=== PATIENT | female | born 1995 | race African-American/Black ===

== ENCOUNTER 2016-07-23 12:14 | Emergency (ER) | payer OTHER ==
[2016-07-23 12:25] VITALS: TEMP 98.2; BMI 19.3
[2016-07-23] MEDS ORDERED: morphine CARPU-JECT 2 MG/1 ML DISP.SYRIN IVPUSH ONE (12:43)
[2016-07-23] MEDS ORDERED: morphine CARPU-JECT 4 MG/1 ML DISP.SYRIN ONE (12:52)
[2016-07-23 13:18] LABS: BASOPHIL 0.4 % (0-2.0); EOSINOPHIL 7.1 % (0-4.5); MCH 31.5 pg (25.7-33.7); MCHC 33.7 g/dl (32.0-36.0); MEAN CELL VOLUME 93.4 fl (80-96); MEAN PLT VOLUME 7.7 fl (7.5-11.1); NEUTROPHILS 64.5 % (42.8-82.8); PLATELET COUNT 230 K/MM3 (134-434); RDW 13.9 % (11.6-15.6)
--- NOTE | 2016-07-23 13:18 | PDOC ---
History of Present Illness - General Chief Complaint: Pain Stated Complaint: ABD PAIN Time Seen by Provider: 07/23/16 12:32 History Source: Patient Exam Limitations: No Limitations - History of Present Illness Travel History: No Initial Comments: 07/23/16 13:13 21-year-old female with no past medical history presents with right upper quadrant pain that she describes as sharp and constant gradually worsening since this morning. Patient denies history of gallstones, urinary tract infections, kidney stones, recent illness, nausea, fever, chest pain or shortness of breath. Timing/Duration: reports: constant, getting worse Quality: reports: moderate, sharpness Abdominal Pain Onset Location: reports: RUQ Pain Radiation: reports: flank Activities at Onset: reports: none Aggravating Factors: improves with: None Alleviating Factors: improves with: None Past History - Past Medical History Allergies/Adverse Reactions: Allergies Allergy/AdvReac Type Severity Reaction Status Date / Time peanut Allergy Swelling Verified 07/23/16 12:25 alieve Allergy Difficulty Uncoded 07/23/16 12:25 Breathing Home Medications: Ambulatory Orders NK [No Known Home Medication] 07/23/16 Thyroid Disease: No - Surgical History Abdominal Surgery: Yes (hernia) - Reproductive History LMP Normal: No Is Patient Now?: No (#): 0 Para: 0 - Psycho/Social/Smoking Cessation Hx Anxiety: No Suicidal Ideation: No Smoking History: Former smoker Have you smoked in the past 12 months: No Information on smoking cessation initiated: No Hx Alcohol Use: Yes (daily) Drug/Substance Use Hx: Yes (smokes marijuana daily) Substance Use Type: Alcohol, Marijuana Patient Lives Alone: No Lives with/in: parents Review of Systems - Review of Systems Able to Perform ROS?: Yes Constitutional: No: Symptoms Reported HEENTM: No: Symptoms Reported Respiratory: No: Symptoms reported Cardiac (ROS): No: Symptoms Reported ABD/GI: Yes: Abdominal cramping : Yes: Flank Pain Musculoskeletal: No: Symptoms Reported Integumentary: No: Symptoms Reported Neurological: No: Symptoms reported Endocrine: No: Symptoms Reported Hematologic/Lymphatic: No: Symptoms Reported *Physical Exam - Vital Signs Last Vital Signs Temp Pulse Resp BP Pulse Ox 98.2 F 67 18 129/90 100 07/23/16 12:15 07/23/16 12:15 07/23/16 12:15 07/23/16 12:15 07/23/16 12:15 - Physical Exam General Appearance: Yes: Nourished, Appropriately Dressed. No: Apparent Distress HEENT: positive: EOMI, CHRISTINA. negative: Pale Conjunctivae Neck: positive: Supple Respiratory/Chest: positive: Lungs Clear, Normal Breath Sounds. negative: Respiratory Distress, Accessory Muscle Use Cardiovascular: positive: Regular Rhythm, Regular Rate. negative: Murmur Gastrointestinal/Abdominal: positive: Soft, Tenderness (right upper quadrant. Negative McBurney's. ) Musculoskeletal: positive: CVA Tenderness (R) Extremity: positive: Normal Capillary Refill. negative: Pedal Edema Integumentary: positive: Normal Color, Warm, Moist ED Treatment Course - LABORATORY CBC & Chemistry Diagram: 07/23/16 13:10 07/23/16 13:10 - RADIOLOGY Radiology Studies Ordered: Category Date Time Status ABDOMEN US -LIMITED [US] Stat Ultrasound 07/23/16 12:43 Ordered - Medications Given in the ED: ED Medications Discontinued Medications Generic Name Dose Route Start Last Admin Trade Name Gee PRN Reason Stop Dose Admin Morphine Sulfate 4 mg 07/23/16 12:43 07/23/16 13:00 Morphine Injection - IVPUSH 07/23/16 12:44 4 mg ONCE ONE Administration Medical Decision Making - Medical Decision Making 07/23/16 13:00 Patient with right upper quadrant and right flank pain on exam. Patient also with CVA tenderness on exam. Patient ordered for labs, lipase, urine, and gallbladder ultrasound. Patient also ordered morphine for pain 07/23/16 15:05 Laboratory Tests 07/23/16 07/23/16 07/23/16 12:28 13:10 13:10 WBC 6.0 Hgb 12.8 Hct 37.9 Plt Count 230 Neutrophils % 64.5 Sodium 140 Potassium 4.1 Chloride 104 Carbon Dioxide 26 Anion Gap 10 BUN 6 L Creatinine 0.7 Random Glucose 95 Calcium 9.2 Total Bilirubin 0.6 AST 11 L ALT 15 Alkaline Phosphatase 60 Total Protein 7.3 Albumin 4.1 Lipase 77 Urine Ketones Negative Urine Nitrite Negative Urine HCG, Qual Negative Patient requesting more pain medication. Patient ordered for Toradol. Patient pending ultrasound. 07/23/16 15:19 Patient has no signs of gallbladder abnormality. Lives with her is measuring liver measuring normal size. Pancreas is not visualized secondary to bowel gas. Patient will be discharged home to increase her activity drink plenty of fluids and add fiber to diet. *DC/Admit/Observation/Transfer Diagnosis at time of Disposition: Abdominal pain Qualifiers: Abdominal location: right upper quadrant Qualified Code(s): R10.11 - Right upper quadrant pain - Discharge Dispostion Disposition: HOME Condition at time of disposition: Improved - Patient Instructions Printed Discharge Instructions: DI for Abdominal Pain-Adult Additional Instructions: Please increase her fiber drink more fluids and increase activity as this may be related to gas.
[2016-07-23 13:21] LABS: URINE APPEARANCE CLEAR; URINE BILIRUBIN NEGATIVE (NEGATIVE); URINE BLOOD NEGATIVE (NEGATIVE); URINE COLOR STRAW; URINE GLUCOSE (UA) NEGATIVE (NEGATIVE); URINE KETONE NEGATIVE (NEGATIVE); URINE LEUK ESTERASE NEGATIVE (NEGATIVE); URINE NITRITE NEGATIVE (NEGATIVE); URINE PROTEIN NEGATIVE (NEGATIVE); URINE UROBILINOGEN NEGATIVE E.U./dl (0.2-1.0)
[2016-07-23 13:39] LABS: ALBUMIN 4.1 g/dl (3.4-5.0); ANION GAP 10 (8-16); BILIRUBIN,TOTAL 0.6 mg/dL (0.2-1.0); CALCIUM 9.2 mg/dL (8.5-10.1); CO2 26 mmol/L (21-32); COCKROFT - GAULT 104.7115; CREATININE 0.7 mg/dL (0.55-1.02); GLUCOSE,RANDOM 95 mg/dL (74-106); SGOT/AST 11 U/L (15-37); SGPT/ALT 15 U/L (12-78); TOT PROT 7.3 g/dl (6.4-8.2)
[2016-07-23 13:43] LABS: ALK PHOS 60 U/L (45-117)
--- NOTE | 2016-07-23 14:09 | PDOC ---
*Physical Exam - Vital Signs Last Vital Signs Temp Pulse Resp BP Pulse Ox 98.2 F 67 18 129/90 100 07/23/16 12:15 07/23/16 12:15 07/23/16 12:15 07/23/16 12:15 07/23/16 12:15 - Physical Exam Comments: 07/23/16 14:09 The patient was examined by [AMARA Reis] under my direct supervision. I personally evaluated the patient. I concur with the above findings and the plan of care. ED Treatment Course - LABORATORY CBC & Chemistry Diagram: 07/23/16 13:10 07/23/16 13:10 - ADDITIONAL ORDERS Additional order review: Laboratory Results 07/23/16 07/23/16 13:10 12:28 Sodium 140 Potassium 4.1 Chloride 104 Carbon Dioxide 26 Anion Gap 10 BUN 6 L Creatinine 0.7 Creat Clearance w eGFR > 60 Random Glucose 95 Calcium 9.2 Total Bilirubin 0.6 AST 11 L ALT 15 Alkaline Phosphatase 60 Total Protein 7.3 Albumin 4.1 Lipase 77 Urine Color Straw Urine Appearance Clear Urine pH 6.0 Urine Protein Negative Urine Glucose (UA) Negative Urine Ketones Negative Urine Blood Negative Urine Nitrite Negative Urine Bilirubin Negative Urine Urobilinogen Negative Ur Leukocyte Esterase Negative Urine HCG, Qual Negative 07/23/16 13:10 RBC 4.06 MCV 93.4 MCHC 33.7 RDW 13.9 MPV 7.7 Neutrophils % 64.5 Lymphocytes % 19.9 Monocytes % 8.1 Eosinophils % 7.1 H Basophils % 0.4 - Medications Given in the ED: ED Medications Discontinued Medications Generic Name Dose Route Start Last Admin Trade Name Gee PRN Reason Stop Dose Admin Morphine Sulfate 4 mg 07/23/16 12:43 07/23/16 13:00 Morphine Injection - IVPUSH 07/23/16 12:44 4 mg ONCE ONE Administration *DC/Admit/Observation/Transfer Diagnosis at time of Disposition: Abdominal pain - Discharge Dispostion Disposition: HOME Condition at time of disposition: Improved - Patient Instructions Printed Discharge Instructions: DI for Abdominal Pain-Adult Additional Instructions: Please increase her fiber drink more fluids and increase activity as this may be related to gas.
[2016-07-23] MEDS ORDERED: KETOROLAC TROMETHAMINE 30 MG/1 ML VIAL ONE (15:06)
[2016-07-23] MEDS ORDERED: KETOROLAC TROMETHAMINE 30 MG/1 ML VIAL IVPUSH ONE (15:12)
[2016-07-23 15:57] VITALS: BP 126/81; PULSE 81
== END 2016-07-23 15:58 | disposition home or self-care (01) ==
LOC: JER 12:14
PROC: 3E033NZ Introduction of Analgesics, Hypnotics, Sedatives into Peripheral Vein, Percutaneous Approach (ICD-10-PCS; principal; 2016-07-23)
PROC: 3E0333Z Introduction of Anti-inflammatory into Peripheral Vein, Percutaneous Approach (ICD-10-PCS; 2016-07-23)
DX: R10.11 Right upper quadrant pain (principal)
CPT/HCPCS: 36415; 76705-TC; 80053; 81003; 83690; 84703; 85025; 87086; 99283-25

== ENCOUNTER 2018-03-26 22:03 | Emergency (ER) | payer OTHER ==
[2018-03-26 22:10] VITALS: BP 115/85; PULSE 74; TEMP 98.2; BMI 18.6
--- NOTE | 2018-03-26 22:21 | PDOC ---
History of Present Illness - General Chief Complaint: Pain Stated Complaint: PAIN Time Seen by Provider: 03/26/18 22:15 History Source: Patient Exam Limitations: No Limitations - History of Present Illness Initial Comments: Patient is a 23-year-old female who does a lot of repetitive wrist movements who complains of paresthesia to the left hand x 1 hour. She denies injury or trauma. She is right-hand dominant. Patient denies history of tenosynovitis or carpal tunnel syndrome. She denies pain. Pain is 0-10. Denies aggravating or relieving factors. 03/26/18 22:17 Past History - Travel Traveled outside of the country in the last 30 days: No - Past Medical History Allergies/Adverse Reactions: Allergies Allergy/AdvReac Type Severity Reaction Status Date / Time amoxicillin Allergy Verified 03/26/18 22:10 peanut Allergy Swelling Verified 07/23/16 12:25 Penicillins Allergy Verified 03/26/18 22:10 alieve Allergy Difficulty Uncoded 07/23/16 12:25 Breathing Home Medications: Ambulatory Orders NK [No Known Home Medication] 07/23/16 COPD: No Thyroid Disease: No - Surgical History Abdominal Surgery: Yes (hernia) - Reproductive History (#): 0 Para: 0 - Suicide/Smoking/Psychosocial Hx Smoking History: Never smoked Have you smoked in the past 12 months: No Information on smoking cessation initiated: No Hx Alcohol Use: No Drug/Substance Use Hx: No Substance Use Type: Alcohol, Marijuana Review of Systems - Review of Systems Able to Perform ROS?: Yes Constitutional: No: Chills, Fever All Other Systems: Reviewed and Negative *Physical Exam - Vital Signs Last Vital Signs Temp Pulse Resp BP Pulse Ox 98.2 F 74 16 115/85 100 03/26/18 22:08 03/26/18 22:08 03/26/18 22:08 03/26/18 22:08 03/26/18 22:08 - Physical Exam Comments: Constitutional: VS stated, pt appears in no apparent distress; sitting in chair. Skin: Warm and dry. Intact, no lesions or excoriations. Head: Normocephalic; atraumatic Eyes: conjunctiva pink without injection or discharge. Neck: Supple, non-tender, with full ROM, Lungs: Bilateral breath sounds clear upon auscultation. Heart: Regular rate and rhythm, Musculoskeletal: No pain upon palpation. Negative phalens sign. Positive Tinnels. No deformity. Radial pulse present, cap refill less than 2 seconds. sensation intact. Neurologic: Awake, alert. . 03/26/18 22:18 Moderate Sedation - Procedure Monitoring Vital Signs: Procedure Monitoring Vital Signs Temperature 98.2 F 03/26/18 22:08 Pulse Rate 74 03/26/18 22:08 Respiratory Rate 16 03/26/18 22:08 Blood Pressure 115/85 03/26/18 22:08 O2 Sat by Pulse Oximetry (%) 100 03/26/18 22:08 Medical Decision Making - Medical Decision Making 03/26/18 22:20 Gave VO to LUIS M Roland for a velcro wrist splint. *DC/Admit/Observation/Transfer Diagnosis at time of Disposition: Carpal tunnel syndrome Qualifiers: Laterality: left Qualified Code(s): G56.02 - Carpal tunnel syndrome, left upper limb - Discharge Dispostion Disposition: HOME Condition at time of disposition: Stable Decision to Admit order: No - Referrals - Patient Instructions Printed Discharge Instructions: DI for Carpal Tunnel Syndrome Additional Instructions: Wrist splint on for comfort measures. F/U with your PCP - Post Discharge Activity Forms/Work/School Notes: Back to Work
== END 2018-03-26 22:31 | disposition home or self-care (01) ==
LOC: JERFT 22:03
DX: G56.02 Carpal tunnel syndrome, left upper limb (principal); Z88.0 Allergy status to penicillin; Z91.010 Allergy to peanuts
CPT/HCPCS: 99281-25